=== PATIENT | female | born 1990 | race Caucasian/White ===

== ENCOUNTER 2019-04-02 15:59 | Inpatient (IN) | payer BC, MEDICAID ==
[~2019-04-02] VITALS: Ht 157.5 cm; Wt 106.6 kg
[2019-04-02 16:00] VITALS: BP_SYST 155
[2019-04-02] MEDS ORDERED: NACL 0.9% 1,000 ML IV ONE (16:05)
--- NOTE | 2019-04-02 16:15 | NUR ---
Patient to ER bed 03 to gown for evaluation. Side rails up.
--- NOTE | 2019-04-02 16:16 | NUR ---
Patient arrived in the ED c/o no energy and pallor. Stated labs are drawn at her workplace and her Hgb and Hct are low. Bowel sounds present in all 4 quadrants, LBM 04/01/19. Denied any fevers or chills. Denied any nausea, vomiting or diarrhea. Patient is alert and oriented x4, respirations even and unlabored, speaking in full sentences, and ambulating with a steady gait. VSS, pain severity 0/10. Denied any respiratory distress at this time. Informed of the wait time. Instructed to notify ED staff for any changes in condition or worsening of symptoms. Patient verbalized understanding.
--- NOTE | 2019-04-02 16:19 | NUR ---
Patient mabulated to the bathroom with a steady gait. Urine specimen collected.
--- NOTE | 2019-04-02 16:35 | NUR ---
ER Dr. Townsend at bedside examining patient.
--- NOTE | 2019-04-02 16:37 | NUR ---
Patient taken to X-ray in stable condition.
--- NOTE | 2019-04-02 17:15 | NUR ---
Patient taken to CT in stable condition.
[2019-04-02 17:26] LABS: BILIRUBIN,URINE NEGATIVE (NEGATIVE); BLOOD, URINE 3+ (NEGATIVE); CLARITY/URINE SL CLOUDY (CLEAR); COLOR,URINE YELLOW (YELLOW); GLUCOSE,URINE NEGATIVE (NEGATIVE); KETONES,URINE NEGATIVE (NEGATIVE); LEUKOCYTE ESTERASE ,URINE NEGATIVE (NEGATIVE); NITRITE, URINE NEGATIVE (NEGATIVE); PH,URINE 5.5 (5.0-8.0); PROTEIN URINE NEGATIVE (NEGATIVE)
--- NOTE | 2019-04-02 17:30 | NUR ---
# 20 gauge angiocath placed to LAC. Use of asceptic technique. Opsite placed over site. Blood return noted. Blood for lab drawn from site. Flushed with 10 cc of normal saline. No evidence of infiltration noted. Patient tolerated well.
--- NOTE | 2019-04-02 17:31 | NUR ---
Patient is back from CT in stable condition.
[2019-04-02 17:37] LABS: BASOPHILS # (AUTO) 0.2 K/uL (0.0-0.2); BASOPHILS % (AUTO) 1.6 % (0.0-2.0); EOSINOPHILS # (AUTO) 0.1 K/uL (0.0-0.4); EOSINOPHILS % (AUTO) 1.2 % (0.0-4.0); LYMPHOCYTES % (AUTO) 19.5 % (20.5-51.5); MEAN CORPUSCULAR HEMOGLOBIN 19 pg (27-31); MEAN CORPUSCULAR HGB CONC 29 % (32-36); MEAN CORPUSCULAR VOLUME 63 fL (79.0-98.0); MONOCYTES # (AUTO) 0.9 K/uL (0.0-1.0); MONOCYTES % (AUTO) 8.8 % (1.7-9.3); NEUTROPHILS # (AUTO) 7.1 K/uL (1.8-7.7); NEUTROPHILS % (AUTO) 68.9 % (40.0-70.0); PLATELET COUNT (AUTO) 345 K/uL (130-430); RED BLOOD CELL COUNT(AUTO) 2.32 MIL/uL (4.2-6.2); RED CELL DISTRIBUTION WIDTH 19.6 % (9.0-15.0); WHITE BLOOD COUNT (AUTO) 10.4 K/uL (4.8-10.8)
[2019-04-02 17:44] LABS: HEMOGLOBIN 4.3 g/dL (12.0-16.0)
[2019-04-02 17:45] LABS: HEMATOCRIT 14.6 % (36-48)
--- NOTE | 2019-04-02 17:47 | NUR ---
ER Dr. Townsend at bedside re-examining patient.
[2019-04-02 18:11] LABS: PROTHROMBIN TIME 10.5 SECS (9.5-12.5)
[2019-04-02 18:15] LABS: CALCIUM 8.1 mg/dL (8.4-11.0); CREATININE 0.58 mg/dL (0.55-1.30)
[2019-04-02 18:21] LABS: ALBUMIN 3.5 g/dL (3.4-4.8); TOTAL BILIRUBIN 0.4 mg/dL (0.0-1.0)
--- NOTE | 2019-04-02 18:39 | NUR ---
Blood transfusion consent signed. PRBC requisition orders dropped off at the lab.
[2019-04-02 18:50] LABS: BACTERIA,URINE FEW /HPF (None Seen); RBC,URINE >100 /HPF (0-3); WBC,URINE 0-3 /HPF (0-3)
[2019-04-02 18:51] LABS: MUCUS,URINE None Seen /LPF (None Seen); URIC ACID CRYSTALS,URINE 30-50 /HPF (None Seen)
--- NOTE | 2019-04-02 18:53 | NUR ---
PRBC picked up from the blood bank.
--- NOTE | 2019-04-02 19:08 | NUR ---
Blood Transfusion started, Blood products double verified by ASYA Gale.
--- NOTE | 2019-04-02 19:08 | NUR ---
Sen hernandez in [facility] - 04/02/19 at 2024 by [email or web address] Blood Transfusion Started, Double verified by ASYA Gale
--- NOTE | 2019-04-02 19:20 | NUR ---
Admission orders received from Dr. Barkley. Orders placed.
--- NOTE | 2019-04-02 19:23 | NUR ---
Post 15-minute vital sigs re-assesed. Pt tolerating blood infusion well, no s/s of adverse reactions
--- NOTE | 2019-04-02 19:30 | NUR ---
Report given and care transferred to ASYA Pacheco.
--- NOTE | 2019-04-02 20:29 | NUR ---
Pt resting in ED bed. Tolerating blood products well. No s/s of adverse reaction
--- NOTE | 2019-04-02 21:20 | NUR ---
Pt resting in ED bed comfortably. No s/s of distress. Family bedside.
--- NOTE | 2019-04-02 22:30 | NUR ---
Pt completed first unit of blood. No s/s of adverse reactions. Pt resting in ED bed comfortably, no distress.
--- NOTE | 2019-04-02 22:45 | NUR ---
2nd unit O positive packed RBC's retrieved from blood bank
--- NOTE | 2019-04-02 23:00 | NUR ---
Initiated 2nd unit of O positive PRBC's Via iv. Double confirmed with ASYA Galdamez.
--- NOTE | 2019-04-02 23:15 | NUR ---
Pt resting in ed bed comfortably. No s/s of infusion reaction. 15-minute post infusion. Vital signs taken 98.9 temp, 124 pulse, 16 rr, 136/74
--- NOTE | 2019-04-02 23:29 | NUR ---
Patient will be admitted to care of Admitted to Tele unit. Will go to room 111B. Belongings list completed. Complete and up to date summary report printed. SBAR report to be given at bedside with opportunity for questions.
--- NOTE | 2019-04-02 23:29 | NUR ---
Transfer to Tele via ACLS protocol. Licensed nurse present. IV present no signs or symptoms of infiltration.
[2019-04-02] MEDS ORDERED: ACETAMINOPHEN 500 MG TABLET ONE (23:41)
--- NOTE | 2019-04-02 23:50 | NUR ---
ADMISSION NOTE Received patient from ER via gurney. Patient admitted with diagnosis of Severe Anemia. Patient is awake, alert, oriented X 4. Patient oriented to hospital room, call light, toileting, pain management and safety-teach back done. Patient informed that Lida will be her nurse and that their room number is 111B. Personal belongings checked and Belongings List documented. Call light within reach.
[2019-04-03] VITALS (9 sets, daily range): BP systolic 111–148
--- NOTE | 2019-04-03 01:15 | NUR ---
Notes 2nd unit of PRBC complete. VSS complete. No signs of allergic reaction noted. Informed ekg monitor to draw labs for HH @6151. Patient's eating food brought in by boyfriend. No other needs. Call light with the patient. Safety precautions in place.
[2019-04-03 02:58] LABS: HEMATOCRIT 20.4 % (36-48); HEMOGLOBIN 6.3 g/dL (12.0-16.0)
[2019-04-03] MEDS: ACETAMINOPHEN 325 MG TABLET PO PRN ×3 (03:14→18:03)
--- NOTE | 2019-04-03 03:18 | NUR ---
Headache Patient complaining of headache. PRN Tylenol given. Educated the action and side effects of medications. Patient verbalized understanding. No other needs. call light with the patient. Safety precautions in place. Called lab for status of PRBC. Per public works laborer, she is preparing the blood and will call when ready.
--- NOTE | 2019-04-03 04:10 | NUR ---
BT INITIATION: 3rd Unit Consent signed per patient agreeing to administration of blood. Blood has been type and crossmatched. Blood sent from blood bank. Information on unit of blood checked against patient wristband at bedside by two nurses. All information matches. Patient or responsible democrat informed of potential complications associated with blood transfusion. Informed of possible transfusion reaction symptoms. Aware of need to notify nurse at once of itching, shortness of breath, flushing, feeling of impending doom, or other symptoms not previously present. Vital signs taken within 5 minutes prior to initiation of transfusion. RN will remain with patient for first 15 minutes of transfusion at which time vital signs will be re-assessed. Addendum: 04/03/19 at 0430 by Misty Good RN 15 minutes after initiating BT: No signs of allergic reaction noted. VSS. Breathing even and unlabored. Rate increased to a tolerable rate. No other needs. Call light with the patient. Safety precautions in place.
--- NOTE | 2019-04-03 06:56 | NUR ---
Closing notes 3rd unit of PRBC complete. No allergic reactions noted. VSS. Will endorse 4th unit to next shift. Informed registration clerk to draw labs once blood transfusion complete. Informed patient that she will need to have a full bladder for Pelvic ultrasound. Patient verbalized understanding. IV patent and intact, no signs of infiltration noted. All needs met throughout the shift. Call light with the patient. Safety precautions in place. Will endorse care to day shift RN.
--- NOTE | 2019-04-03 07:30 | NUR ---
OPENING NOTE PT RESTING IN BED. CHEST RISE AND FALL NOTED. BOYFRIEND AT BEDSIDE. NO ACUTE DISTRESS NOTED. IV INTACT AND PATENT. NO SIGNS OF INFILTRATION. FALL AND ASPIRATION PRECAUTIONS IN PLACE. ALL NEEDS MET. CALL LIGHT IN REACH. CONTINUE TO MONITOR.
[2019-04-03] MEDS: amLODIPine BESYLATE 10 MG TABLET PO SCH (08:45)
--- NOTE | 2019-04-03 09:08 | NUR ---
BLOOD TRANSFUSION INITIATION Consent signed per patient agreeing to administration of blood. Blood has been type and crossmatched. Blood sent from blood bank. Information on unit of blood checked against patient wristband at bedside by two nurses. All information matches. Patient or responsible alliance party informed of potential complications associated with blood transfusion. Informed of possible transfusion reaction symptoms. Aware of need to notify nurse at once of itching, shortness of breath, flushing, feeling of impending doom, or other symptoms not previously present. Vital signs taken within 5 minutes prior to initiation of transfusion. RN will remain with patient for first 15 minutes of transfusion at which time vital signs will be re-assessed.
--- NOTE | 2019-04-03 11:08 | NUR ---
ROUNDS PT AWAKE AND ALERT IN BED. NO ACUTE DISTRESS NOTED. BOYFRIEND AT BEDSIDE. IV INTACT AND PATENT. NO SIGNS OF INFILTRATION. BLOOD TRANSFUSING ORDERED. TOLERATING WELL. ALL NEEDS MET. CALL LIGHT IN REACH. FALL AND ASPIRATION PRECAUTIONS IN PLACE. CONTINUE TO MONITOR.
--- NOTE | 2019-04-03 12:00 | NUR ---
FOURTH UNIT OF BLOOD TRANSFUSION ENDED FOURTH UNIT OF BLOOD TRANSFUSION ENDED. PT AWAKE, ALERT, AND ORIENTED X4. VITAL SIGNS STABLE. NO ACUTE DISTRESS NOTED. BOYFRIEND AT BEDSIDE. FALL AND ASPIRATION PRECAUTIONS IN PLACE. ALL NEEDS MET. CONTINUE TO MONITOR. Addendum: 04/03/19 at 1334 by Argentina Navarro RN NO SIGNS AND SYMPTOMS OF ADVERSE EFFECTS FROM BLOOD TRANSFUSION.
--- NOTE | 2019-04-03 13:15 | NUR ---
ROUNDS LAB DRAWN BY TRAFFIC CONTROL FLAGGER FOR BLOOD DRAW AT BEDSIDE. NO ACUTE DISTRESS NOTED. BOYFRIEND AT BEDSIDE. FALL AND ASPIRATION PRECAUTIONS IN PLACE. ALL NEEDS MET. CONTINUE TO MONITOR.
[2019-04-03 13:29] LABS: BASOPHILS # (AUTO) 0.1 K/uL (0.0-0.2); BASOPHILS % (AUTO) 1.2 % (0.0-2.0); EOSINOPHILS # (AUTO) 0.2 K/uL (0.0-0.4); HEMATOCRIT 27.1 % (36-48); HEMOGLOBIN 8.8 g/dL (12.0-16.0); LYMPHOCYTES # (AUTO) 2.7 K/uL (1.0-5.5); LYMPHOCYTES % (AUTO) 33.2 % (20.5-51.5); MEAN CORPUSCULAR HEMOGLOBIN 24 pg (27-31); MEAN CORPUSCULAR HGB CONC 33 % (32-36); MEAN CORPUSCULAR VOLUME 75 fL (79.0-98.0); MONOCYTES # (AUTO) 0.5 K/uL (0.0-1.0); MONOCYTES % (AUTO) 5.7 % (1.7-9.3); NEUTROPHILS # (AUTO) 4.7 K/uL (1.8-7.7); NEUTROPHILS % (AUTO) 57.9 % (40.0-70.0); PLATELET COUNT (AUTO) 288 K/uL (130-430); RED BLOOD CELL COUNT(AUTO) 3.63 MIL/uL (4.2-6.2); WHITE BLOOD COUNT (AUTO) 8.1 K/uL (4.8-10.8)
[2019-04-03 13:52] LABS: CALCIUM 8.1 mg/dL (8.4-11.0); CREATININE 0.69 mg/dL (0.55-1.30); POTASSIUM 3.9 mmol/L (3.5-5.1)
--- NOTE | 2019-04-03 15:06 | NUR ---
Motor Room Controller: met with pt. to conduct a DCPA. Pt. was calm and quiet during the interview. She had her fiancee, mom and a couple of other visitors and stated it was ok to continue on with the interview. Pts. mom, Rand Aquino assisted pt. with some of the answers. Pt. wants to be discharged and go home. Pts. mom stated pt may have suffered an eptopic and may not have been aware. Mom continued to say this was the first time her daughter had to be hospitalized for this condition. Pt. stated she is a good pt. and will follow Drs. orders upon discharge. Pt. denied having any mental health Dx. and denied ever feeling or having any SI. SENIOR QUALITY CONTROL TECHNICIAN shared some resources with her as pt. first stated she does not have a PCP. She listed her mom's dr. as PCP. Pt. now has a list for medical providers as well as mental health should she need it. SENIOR QUALITY CONTROL TECHNICIAN will remain available as needed.
--- NOTE | 2019-04-03 15:40 | NUR ---
SEEN AND EXAMINED BY AT BEDSIDE
--- NOTE | 2019-04-03 16:37 | NUR ---
SEEN AND EXAMINED BY
--- NOTE | 2019-04-03 16:45 | NUR ---
CONSULTATION PAGED/CALLED Reason for Consultation: [] VAGINAL BLEED AND SEVERE ANEMIA Person Who was Notified: [] DR WILBURN Consulting Physician: [] DR Mana WILBURN Radio Repairer Domestic Specialty: [] OB-EMANATIONS ANALYSIS TECHNICIAN Ordering Physician: [] DR Matthew HILL
--- NOTE | 2019-04-03 17:00 | NUR ---
NOTE PATIENT AWAKE IN BED TALKING TO MOTHER AND FAMILY AT BEDSIDE. STABLE. ALL NEEDS MET. CALL LIGHT IN REACH. CONT TO MONITOR
--- NOTE | 2019-04-03 18:47 | NUR ---
CLOSING NOTE PATIENT IS SITTING UP IN BED TALKING TO AMANDA. STABLE. NO ACUTE DISTRESS. NO SOB. RESPIRATION EVEN AND UNLABORED. SKIN WARM AND DRY TO TOUCH. IV INTACT AND PATENT. ALL NEEDS MET. CALL LIGHT IN REACH. BED IN LOW AND LOCKED POSITION. SIDERAIL UPX2. PATIENT IS BRP WITH STEADY GAIT. WILL ENDORSE TO ONCOMING SHIFT.
--- NOTE | 2019-04-03 19:30 | NUR ---
Opening notes Received report. Patient resting in bed. No signs of distress noted. Breathing even and unlabored. Patient denies pain at this time. IV patent and intact, no signs of infiltration noted. Updated patient on plan of care. Patient verbalized understanding. Patient requesting to shower, informed patient we need a doctor's order because patient we are monitoring patient's heart rate and rhythm. Will inform MD. No other needs at this time. Call light with the patient. Safety precautions in place. Boyfriend at bedside.
[2019-04-03 20:40] LABS: TOTAL IRON BIND. CAPACITY 502 ug/dL (250-450)
--- NOTE | 2019-04-03 21:30 | NUR ---
Resting Patient is resting in bed. No signs of distress noted. Breathing even and unlabored. Dr. Wong stated patient okay to shower. Patient waiting for boyfriend to bring her clothes. No other needs. Call light with the patient. Safety precautions in place.
--- NOTE | 2019-04-04 | NUR ---
Pain/Shower Patient complains of headache, prn Tylenol given. Educated the action and side effects of medications. Patient also showered. Patient back in bed. No signs of distress noted. Breathing even and unlabored. IV patent and intact, no signs of infiltration noted. No other needs. Call light with the patient. Safety precautions in place.
[2019-04-04] MEDS: ACETAMINOPHEN 325 MG TABLET PO PRN ×3 (00:04→15:59)
[2019-04-04 00:12] VITALS: BP_SYST 135
--- NOTE | 2019-04-04 02:30 | NUR ---
Resting Patient is resting, talking to boyfriend. No signs of distress noted. Breathing even and unlabored. Call light with the patient. Safety precautions in place.
--- NOTE | 2019-04-04 04:05 | NUR ---
Sleeping No signs of distress noted. Breathing even and unlabored. No needs at this time. Call light with the patient. Safety precautions in place.
[2019-04-04 06:40] LABS: BASOPHILS # (AUTO) 0.1 K/uL (0.0-0.2); EOSINOPHILS # (AUTO) 0.2 K/uL (0.0-0.4); EOSINOPHILS % (AUTO) 1.8 % (0.0-4.0); HEMATOCRIT 26.8 % (36-48); HEMOGLOBIN 8.7 g/dL (12.0-16.0); LYMPHOCYTES # (AUTO) 2.8 K/uL (1.0-5.5); LYMPHOCYTES % (AUTO) 29.4 % (20.5-51.5); MEAN CORPUSCULAR HEMOGLOBIN 24 pg (27-31); MEAN CORPUSCULAR HGB CONC 32 % (32-36); MEAN CORPUSCULAR VOLUME 74 fL (79.0-98.0); MONOCYTES # (AUTO) 0.6 K/uL (0.0-1.0); MONOCYTES % (AUTO) 5.8 % (1.7-9.3); NEUTROPHILS # (AUTO) 5.9 K/uL (1.8-7.7); PLATELET COUNT (AUTO) 271 K/uL (130-430); RED BLOOD CELL COUNT(AUTO) 3.62 MIL/uL (4.2-6.2); WHITE BLOOD COUNT (AUTO) 9.5 K/uL (4.8-10.8)
--- NOTE | 2019-04-04 06:41 | NUR ---
Closing notes Patient is sleeping. No signs of distress noted. Breathing even and unlabored. IV patent and intact, no signs of infiltration noted. All needs met throughout the shift. Call light with the patient. Safety precautions in place. Will endorse care to day shift RN.
[2019-04-04 07:05] LABS: CALCIUM 8.4 mg/dL (8.4-11.0); CREATININE 0.62 mg/dL (0.55-1.30); POTASSIUM 3.7 mmol/L (3.5-5.1)
[2019-04-04 08:00] VITALS: BP_SYST 140
--- NOTE | 2019-04-04 08:00 | NUR ---
Initial notes- In bed, eating breakfast. denies any chest pain or shortness of breath. Complain of headache. will give tylenol. ambulate with steady gait. Per patient still had some spotting. call light in reach.will monitor.
[2019-04-04 08:06] LABS: FOLATE (FOLIC ACID) 14.5 ng/mL (>3.0); FOLLICLE STIMULATION HORMONE 4.1 mIU/mL (.); LUETENIZING HORMONE 10.2 mIU/mL (.)
[2019-04-04] MEDS: amLODIPine BESYLATE 10 MG TABLET PO SCH (08:15)
[2019-04-04 08:31] LABS: RED CELL DISTRIBUTION WIDTH 28.7 % (9.0-15.0)
[2019-04-04 11:52] VITALS: BP_SYST 129
--- NOTE | 2019-04-04 12:00 | NUR ---
Notes- Resting in bed, friend at bedside. denies any pain or discomfort. No distress. will monitor
[2019-04-04 16:00] VITALS: BP_SYST 144
--- NOTE | 2019-04-04 16:30 | NUR ---
Notes- In bed, wants to go home. Called and spoke to Dr. richards, per MD to discharge patient if ok with the [facility].
--- NOTE | 2019-04-04 16:43 | NUR ---
Notes- Spoke to Dr. Gregory. cleared pt to go home and pt already has prescription and to follow up in him i 3-4 weeks.
--- NOTE | 2019-04-04 17:01 | NUR ---
Dietitian Recommendations * Recommend continuing regular diet LP, RD Please refer to Nutrition Assessment for details. Addendum: 04/04/19 at [address] Amended: Links added.
[2019-04-04] MEDS ORDERED: DESO1TAB47 PO (17:02)
--- NOTE | 2019-04-04 17:40 | NUR ---
Discharge d/c pt home accompanied by her friend. ambulate with steady gait. Denies any dizziness, pain or shortness of breath. discharge instruction and prescription given and discussed with patient. pt verbalize understanding. IVL and arm band removed.
== END 2019-04-04 17:35 | disposition home or self-care (01) | DRG 532 ==
LOC: SED 15:59 → STU 19:24
PROVIDERS: ADMIT Family Medicine; ATTEND Family Medicine
PROC: 30233N1 Transfusion of Nonautologous Red Blood Cells into Peripheral Vein, Percutaneous Approach (ICD-10-PCS; principal; 2019-04-02)
DX: E28.2 Polycystic ovarian syndrome (principal); Z68.41 Body mass index [BMI] 40.0-44.9, adult; N92.0 Excessive and frequent menstruation with regular cycle; D64.9 Anemia, unspecified; E66.9 Obesity, unspecified; Z79.899 Other long term (current) drug therapy
CPT/HCPCS: 36415; 71045; 76830-TC; 76856-TC; 80048; 80053; 81000-TC; 82607; 82728; 82746; 83001; 83002; 83525; 83540-TC; 83550-TC; 83605; 83690-TC; 84146; 84403; 84443-TC; 85018-TC; 85025; 85610-TC; 85730-TC; 86886; 86900; 86901; 86920; 87040-TC; 96360; 99285; G0378; P9021